=== PATIENT | female | born 1945 | race Caucasian/White ===

== ENCOUNTER 2019-05-09 11:01 | Emergency (ER) | payer MEDICARE ==
[~2019-05-09] VITALS: Ht 165.1 cm; Wt 74.8 kg
[~2019-05-09 11:01] MED LIST: ALLEGRA180 MG PO; CALCIUM 500 +1 EACH PO; CHROMIUM PICO200 MCG PO; DAILY VITAMIN1 EAC3 PO; ESCITALOPRAM OX20 MG PO; FISH OIL300 MG PO; GLUCOSAMINE &1 EAC1 PO; MONTELUKAST SOD10 MG PO; NEXIUM40 MG PO; OCUVITE LUTEIN1 EACH PO; POTASSIUM GLUCONATE PO; RYTHMOL225 MG PO; WELLBUTRIN XL150 MG PO
--- OUTSIDE RECORDS SUMMARY | 2019-05-09 11:04 | XMS REPORT | Continuity of Care Document ---
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 Phone [employer] Unavailable Unavailable Problems Problem Status Onset Date Classification Date Reported Comments Source UNK Active 12/31/2016 [facility] M17.9 - "OSTEOARTHRITIS OF KNEE, UNSPEC" Active 06/04/2016 [facility] Atrial fibrillation (disorder) Resolved Problem 12/18/2016 [facility] Heart murmur (finding) Resolved Problem 12/18/2016 [facility] Gastroesophageal reflux disease (disorder) Resolved Problem 12/18/2016 [facility] History of methicillin resistant Staphylococcus aureus infection (situation) Resolved Problem 12/18/2016 [facility] Hypertensive disorder, systemic arterial (disorder) Resolved Problem 12/18/2016 [facility] Sleep apnea (finding) Resolved Problem 12/18/2016 [facility] ENCOUNTER FOR SCREENING FOR MALIGNANT NE Active [facility] DIARRHEA, UNSPECIFIED Active [facility] Medications Medication Details Route Status Patient Instructions Ordering Provider Order Date Source Albuterol 0.833 MG/ML / Ipratropium [place] 0.167 MG/ML Inhalant Solution 3 mL, Route: NEB, Dosing Weight 73.636, kg, ONCE, STAT, Start date: 12/15/16 6:28:00 CDT, Stop date: 12/15/16 6:28:00 CDT Inactive 12/15/2016 [facility] Sodium Chloride 0.154 MEQ/ML Injectable Solution 500 mL, Rate: 25 ml/hr, Infuse over: 20 hr, Route: IV, Dosing Weight 73.636 kg, Total Volume: 500, Start date: 12/15/16 6:28:00 CDT, Duration: 30 day, Stop date: 01/14/17 6:27:00 CDT Inactive 12/15/2016 [facility] 6 ML HYLAN G-F 20 8 MG/ML Prefilled Syringe [Synvisc] intra- ARTICULAR, ONCE, 0 Refill(s) Active 12/14/2016 [facility] {28 (Estrogens, Conjugated ([facility]) 0.625 MG / medroxyprogesterone acetate 2.5 MG Oral Tablet) } Pack [Prempro 0.625/2.5 28 Day] 1 tab, PO, Daily, 0 Refill(s) Active 12/14/2016 [facility] escitalopram 20 mg oral tablet 20 mg=1 tab, PO, Daily, 0 Refill(s) Active 12/14/2016 [facility] buPROPion 150 mg/12 hours (SR) oral tablet, extended release 150 mg=1 tab, PO, BID, 0 Refill(s) Active 12/14/2016 [facility] hyoscyamine 0.375 mg oral capsule, extended release 0 Refill(s) Active 12/14/2016 [facility] Esomeprazole 40 MG Enteric Coated Capsule 40 mg=1 cap, PO, Daily, 0 Refill(s) Active 12/14/2016 [facility] propafenone 225 mg oral tablet 225 mg=1 tab, PO, Q8H, 0 Refill(s) Active 12/14/2016 [facility] montelukast 10 mg oral tablet 10 mg=1 tab, PO, Daily, 0 Refill(s) Active 12/14/2016 [facility] potassium chloride 0 Refill(s) Active 12/14/2016 [facility] multivitamin Daily, 0 Refill(s) Active 12/14/2016 [facility] Glucosamine & Chondroitin with MSM 0 Refill(s) Active 12/14/2016 [facility] Fish Oil 1200 mg oral capsule 1,200 mg=1 cap, PO, TID, 0 Refill(s) Active 12/14/2016 [facility] CPAP Machine 1 ea, MISC, Daily, # 1 ea, 0 Refill(s) Active 12/14/2016 [facility] chromium picolinate 200 mcg oral capsule 200 microgram=1 cap, PO, Daily, 0 Refill(s) Active 12/14/2016 [facility] Calcium 500+D 1 tab, CHEW, BID, 0 Refill(s) Active 12/14/2016 [facility] Allergies, Adverse Reactions, Alerts Substance Category Reaction Severity Reaction type Status Date Reported Comments Source Augmentin Assertion Drug allergy Active [facility] Bandaids Assertion Drug allergy Active [facility] erythromycin Assertion Drug [facility]ion [facility] sulfa drugs Assertion Drug allergy Active [facility] Advair Diskus Assertion Drug allergy Active [facility] rifAMPin Assertion Drug allergy Active [facility] Immunizations No Data Provided for This Section Results No Data Provided for This Section Pathology Reports No Data Provided for This Section Diagnostic Reports Report Value Date Source Knee 3 views DX EXAM: XR RIGHT KNEE 3 VIEWS DATE: 06/04/2016 1:36 PM CDT INDICATION: M17.9 Osteoarthritis of knee, unspecified COMPARISON: None available TECHNIQUE: AP, lateral and sunrise radiographs of the right knee FINDINGS: No fracture, periosteal reaction, or erosions identified. Joint alignment is normal. Lateral joint space narrowing present. Lateral and patellofemoral compartment osteophytes present. Subchondral cystic change present in the lateral compartment. Small suprapatellar bursal effusion present. IMPRESSION: Multicompartmental osteoarthrosis, severe in the lateral compartment. Small suprapatellar bursal effusion. 06/04/2016 [facility] Consultation Notes No Data Provided for This Section Discharge Summaries No Data Provided for This Section History and Physicals No Data Provided for This Section Vital Signs Vital Sign Value Date Comments Source Systolic (mm Hg) 134 12/15/2016 [facility] Diastolic (mm Hg) 65 12/15/2016 [facility] Respitory Rate 16 12/15/2016 [facility] Systolic (mm Hg) 120 12/15/2016 [facility] Diastolic (mm Hg) 62 12/15/2016 [facility] Respitory Rate 13 12/15/2016 [facility] Systolic (mm Hg) 112 12/15/2016 [facility] Diastolic (mm Hg) 64 12/15/2016 [facility] Respitory Rate 18 12/15/2016 [facility] Height 165.1 cm 12/14/2016 [facility] Weight 73.636 12/14/2016 [facility] BMI Calculated 27.01 12/14/2016 [facility] Encounters Location Location Details Encounter Type Encounter Number Reason For Visit Attending Provider ADM Date DC Date Status Source [facility] [place] [facility] [id number] Harley Webb 06/04/2016 06/05/2016 [facility] [id number] Chapito Martinez 12/15/2016 12/15/2016 [facility] Procedures Procedure Code Date Perfomer Comments Source Carpal tunnel decompression 61527128 [facility] Tonsillectomy 295649026 [facility] Assessment and Plan No Data Provided for This Section Plan of Care No Data Provided for This Section Social History Social History Date Source Social History TypeResponse Smoking Status Never smoker; Exposure to Tobacco Smoke None; Cigarette Smoking Last 365 Days No; Reg Smoking Cessation Counseling No 12/15/2016 [facility] No data available for this section 06/05/2016 [facility] [place] Family History No Data Provided for This Section Advance Directives No Data Provided for This Section Functional Status No Data Provided for This Section
--- OUTSIDE RECORDS SUMMARY | 2019-05-09 11:04 | XMS REPORT | Summary of Care ---
Author Author [facility] Organization [facility] Address Unknown Phone Unavailable Encounter THERON Burris(TANYA) [id number] Date(s): 12/15/16 - 12/15/16 [facility] [address] [place] [address]- Discharge Disposition: Home or Self Care Attending Physician: Chapito Martinez MD Referring Physician: Chapito Martinez MD Vital Signs 1 2 3 Most recent to oldest [Reference Range]: 165.1 cm (12/14/16 3:12 PM) Height 134/65 mmHg (12/15/16 7:45 AM) 120/62 mmHg (12/15/16 7:30 AM) 112/64 mmHg (12/15/16 7:15 AM) Blood Pressure [90-140/60-90 mmHg] 16 BRMIN (12/15/16 7:45 AM) 13 BRMIN *LOW* (12/15/16 7:30 AM) 18 BRMIN (12/15/16 7:15 AM) Respiratory Rate [14-20 BRMIN] 73.636 kg (12/14/16 3:12 PM) Weight 27.01 m2 (12/14/16 3:12 PM) Body Mass Index Problem List Condition Effective Dates Status Health Status Informant AF (atrial Resolved fibrillation)(Confir med) Murmur(Confirmed) Resolved GERD Resolved (gastroesophageal reflux disease)(Confirmed) History of MRSA Resolved infection(Confirmed) HTN Resolved (hypertension)(Confi rmed) Apnea, Resolved sleep(Confirmed) Allergies, Adverse Reactions, Alerts Substance Reaction Severity Status Advair Diskus Active Augmentin Active rifAMPin Active sulfa drugs Active Medications albuterol-ipratropium 2.5-0.5 mg inhalation solution 3 mL, Route: NEB, Dosing Weight 73.636, kg, ONCE, STAT, Start date: 12/15/16 6:2 8:00 CDT, Stop date: 12/15/16 6:28:00 CDT Start Date: 12/15/16 Stop Date: 12/15/16 Status: Discontinued buPROPion 150 mg/12 hours (SR) oral tablet, extended release 150 mg=1 tab, PO, BID, 0 Refill(s) Start Date: 12/14/16 Status: Ordered Calcium 500+D 1 tab, CHEW, BID, 0 Refill(s) Start Date: 12/14/16 Status: Ordered chromium picolinate 200 mcg oral capsule 200 microgram=1 cap, PO, Daily, 0 Refill(s) Start Date: 12/14/16 Status: Ordered CPAP Machine 1 ea, MISC, Daily, # 1 ea, 0 Refill(s) Start Date: 12/14/16 Status: Ordered escitalopram 20 mg oral tablet 20 mg=1 tab, PO, Daily, 0 Refill(s) Start Date: 12/14/16 Status: Ordered esomeprazole 40 mg oral delayed release capsule 40 mg=1 cap, PO, Daily, 0 Refill(s) Start Date: 12/14/16 Status: Ordered Fish Oil 1200 mg oral capsule 1,200 mg=1 cap, PO, TID, 0 Refill(s) Start Date: 12/14/16 Status: Ordered Glucosamine & Chondroitin with MSM 0 Refill(s) Start Date: 12/14/16 Status: Ordered hyoscyamine 0.375 mg oral capsule, extended release 0 Refill(s) Start Date: 12/14/16 Status: Ordered montelukast 10 mg oral tablet 10 mg=1 tab, PO, Daily, 0 Refill(s) Start Date: 12/14/16 Status: Ordered multivitamin Daily, 0 Refill(s) Start Date: 12/14/16 Status: Ordered potassium chloride 0 Refill(s) Start Date: 12/14/16 Status: Ordered Prempro 0.625 mg-2.5 mg oral tablet 1 tab, PO, Daily, 0 Refill(s) Start Date: 12/14/16 Status: Ordered propafenone 225 mg oral tablet 225 mg=1 tab, PO, Q8H, 0 Refill(s) Start Date: 12/14/16 Status: Ordered Sodium Chloride 0.9% IV 500 mL 500 mL, Rate: 25 ml/hr, Infuse over: 20 hr, Route: IV, Dosing Weight 73.636 kg, Total Volume: 500, Start date: 12/15/16 6:28:00 CDT, Duration: 30 day, Stop date : 01/14/17 6:27:00 CDT Start Date: 12/15/16 Stop Date: 12/15/16 Status: Discontinued Synvisc One 48 mg/6 mL intra-articular solution intra-ARTICULAR, ONCE, 0 Refill(s) Start Date: 12/14/16 Status: Ordered Results No data available for this section Immunizations No data available for this section Procedures Procedure Date Related Diagnosis Body Site Carpal tunnel decompression Tonsillectomy Social History Social History Type Response Smoking Status Never smoker; Exposure to Tobacco Smoke None; Cigarette Smoking Last 365 Days No; Reg Smoking Cessation Counseling No Assessment and Plan No data available for this section
--- OUTSIDE RECORDS SUMMARY | 2019-05-09 11:04 | XMS REPORT | Summary of Care ---
Author Author [facility] Outpatient Imaging [facility] Address Unknown Phone Unavailable Encounter [facility]_alidallin(FIN) [id number] Date(s): 06/04/16 - 06/04/16 [facility] Outpatient Imaging [facility] [address] [facility], [address] [place], [place] [address] [phone] Discharge Disposition: Home or Self Care Attending Physician: Harley Webb MD Vital Signs No data available for this section Problem List No data available for this section Allergies, Adverse Reactions, Alerts Substance Reaction Severity Status Augmentin Active Bandaids Active erythromycin Active Latex Active Septra Active sulfa drugs Active Medications No data available for this section Results No data available for this section Immunizations No data available for this section Procedures No data available for this section Social History No data available for this section Assessment and Plan No data available for this section
[2019-05-09] MEDS ORDERED: SODIUM CHLORIDE 0.9% 1000ML 1,000 ML IV STA (13:06)
[2019-05-09 13:14] LABS: BASOPHILS % 0.4 % (0.0-1.0); EOSINOPHILS # (AUTO) 0.1 (0.0-0.4); EOSINOPHILS % 1.7 % (0.0-6.0); HEMATOCRIT 36.6 % (34.2-44.1); HEMOGLOBIN 11.9 g/dL (12.0-16.0); LYMPHOCYTES # (AUTO) 1.1 (1.0-3.2); LYMPHOCYTES % 15.8 % (18.0-39.1); MEAN CORPUSCULAR HEMOGLOBIN 30.3 pg (28-32); MEAN CORPUSCULAR HGB CONC 32.5 g/dL (31-35); MEAN CORPUSCULAR VOLUME 93.1 fL (81-99); MONOCYTES # (AUTO) 0.5 (0.2-0.8); MONOCYTES % 6.7 % (4.4-11.3); NEUTROPHILS # (AUTO) 5.4 (2.1-6.9); NEUTROPHILS % 75.1 % (38.7-80.0); PLATELET COUNT 210 x10e3/uL (140-360); RED BLOOD COUNT 3.93 x10e6/uL (3.6-5.1); RED CELL DISTRIBUTION WIDTH 14.2 % (11.7-14.4)
--- NOTE | 2019-05-09 13:32 | Diagnostic Imaging Report ---
EXAM: CHEST SINGLE (PORTABLE) DATE: 05/09/2019 1:06 PM INDICATION: Abdominal pain COMPARISON: None FINDINGS: The trachea is midline. The lungs are symmetrically expanded without evidence for large focal consolidation, pneumothorax, or significant pleural effusion. The cardiomediastinal silhouette and pulmonary vasculature are within normal limits. No acute osseous abnormality is identified. The surrounding soft tissues are unremarkable. IMPRESSION: No acute cardiopulmonary process identified. Signed by: Dr. Ruiz Ramachandran MD on 05/09/2019 1:29 PM
[2019-05-09 13:34] LABS: ALANINE AMINOTRANSFERASE 11 IU/L (0-55); ALBUMIN 3.5 g/dL (3.5-5.0); ALBUMIN/GLOBULIN RATIO 1.1 (0.8-2.0); ALKALINE PHOSPHATASE 48 IU/L (40-150); ANION GAP 11.8 mmol/L (8-16); BLOOD UREA NITROGEN 13 mg/dL (7-26); BUN/CREATININE RATIO 13 (6-25); CALCIUM 9.4 mg/dL (8.4-10.2); CARBON DIOXIDE 29 mmol/L (22-29); CHLORIDE 98 mmol/L (98-107); CREATINE KINASE 35 IU/L (29-168); CREATININE, SERUM 0.97 mg/dL (0.57-1.11); EST GLOMERULAR FILTRATION RATE 57 ML/MIN (60-); GLUCOSE 97 mg/dL (74-118); LIPASE 21 U/L (8-78); POTASSIUM 3.8 mmol/L (3.5-5.1); SODIUM 135 mmol/L (136-145)
[2019-05-09] MEDS ORDERED: BUDESONIDE EC3 MG PO (14:12)
[2019-05-09] MEDS ORDERED: LISINOPRIL10 MG PO (14:12)
[2019-05-09] MEDS ORDERED: PREMPRO 0.625-1 EAC1 PO (14:12)
[2019-05-09] MEDS ORDERED: SODIUM CHLORIDE 0.9% 50ML 50 ML ONE (14:21)
[2019-05-09] MEDS ORDERED: IOPAMIDOL 370 MG/ML 200 ML INFUS..BTL INJ ONE (14:22)
[2019-05-09 14:39] LABS: CLARITY,URINE SL CLOUDY (CLEAR); COLOR,URINE YELLOW (YELLOW)
[2019-05-09 14:40] LABS: KETONES,URINE NEGATIVE (NEGATIVE)
[2019-05-09 14:41] LABS: PROTEIN,URINE DIPSTICK 1+ (NEGATIVE); URINE UROBILINOGEN 0.2 mg/dL (0.2 - 1)
[2019-05-09 14:42] LABS: BILIRUBIN,URINE SMALL (NEGATIVE); NITRITE,URINE NEGATIVE (NEGATIVE)
[2019-05-09 14:43] LABS: LEUKOCYTE ESTERASE ,URINE NEGATIVE (NEGATIVE)
[2019-05-09 15:02] LABS: BACTERIA,URINE FEW /HPF; EPITHELIAL CELLS,URINE FEW /LPF
--- NOTE | 2019-05-09 15:14 | Diagnostic Imaging Report ---
CT of the abdomen and pelvis, with contrast. History: Abdominal pain. Comparison: None available. Technique: Multidetector CT scanning of the abdomen and pelvis was performed from the level of the lung bases to the inferior pubic rami after the administration of intravenous contrast material only. Coronal and sagittal multiplanar reformations were obtained. RADIATION DOSE: Total DLP: 562.7 mGy*cm Dose modulation, iterative reconstruction, and/or weight based adjustment of the mA/kV was utilized to reduce the radiation dose to as low as reasonably achievable. FINDINGS: The lung bases are grossly clear. The imaged portion of the heart demonstrates no significant abnormalities. The liver is normal in size and attenuation without evidence for focal abnormality. The gallbladder is unremarkable. There is no biliary ductal dilatation. There is a small hiatal hernia present. The stomach is otherwise unremarkable. The spleen, pancreas, and bilateral adrenal glands are unremarkable. The kidneys are normal in size and location concentrate contrast material properly. There is no evidence for hydronephrosis. The ureters are normal in course and caliber. The urinary bladder demonstrates no significant abnormalities. The uterus and adnexa are grossly unremarkable. The abdominal aorta is normal course and caliber. The IVC is unremarkable. Please note evaluation the bowel is limited without the use of enteric contrast material. The visualized loops of small and large bowel demonstrate no evidence of obstruction or inflammation. There is no ascites or intraperitoneal free air. No abnormally enlarged nodes are identified within the abdomen or pelvis. There is a umbilical hernia with 1.6 cm fascial defect which contains herniated fat and small amount of fluid. There is mild stranding of the herniated fat. The osseous structures demonstrate no evidence for acute fracture or destructive process. IMPRESSION: Fat and fluid containing umbilical hernia with associated mild inflammation of the herniated fat which can be seen in the setting of strangulation. Recommend correlation with physical examination. No other acute abdominopelvic process identified. Signed by: Dr. Ruiz Ramachandran MD on 05/09/2019 3:11 PM
[2019-05-09 16:45] VITALS: BP 162/71
== END 2019-05-09 16:47 | disposition home or self-care (01) ==
LOC: ER 11:01
DX: M54.6 Pain in thoracic spine (principal); S23.3XXA Sprain of ligaments of thoracic spine, initial encounter; S39.012A Strain of muscle, fascia and tendon of lower back, initial encounter; W01.0XXA Fall on same level from slipping, tripping and stumbling without subsequent striking against object, initial encounter; Y93.H2 Activity, gardening and landscaping; Y92.007 Garden or yard of unspecified non-institutional (private) residence as the place of occurrence of the external cause; I10 Essential (primary) hypertension; E11.9 Type 2 diabetes mellitus without complications; E78.5 Hyperlipidemia, unspecified; F32.9 Major depressive disorder, single episode, unspecified
CPT/HCPCS: 36415; 71045; 74177; 80053; 81001; 82550; 82553; 83690; 83735; 83880; 84484; 85025; 87086; 93005; 99284; J7030; Q9967